=== PATIENT | male | born 1990 | race Hispanic/Latino ===

== ENCOUNTER 2017-05-22 15:22 | Emergency (ER) | payer SELFPAY ==
[2017-05-22] MEDS ORDERED: CEFTRIAXONE SODIUM 1 GM ONE (17:28)
[2017-05-22] MEDS ORDERED: KETOROLAC TROMETHAMINE 60 MG/2 ML VIAL ONE (17:28)
[2017-05-22] MEDS ORDERED: ACETAMINOPHEN-CODEINE 300/30MG TAB ONE (17:28)
[2017-05-22] MEDS ORDERED: LIDOCAINE HCL-MPF 1% 2ML VIAL ONE (17:28)
== END 2017-05-22 18:04 | disposition home or self-care (01) ==
LOC: EDH 15:22
DX: K02.9 Dental caries, unspecified (principal); Z72.0 Tobacco use
CPT/HCPCS: 96372 ×2; 99284; J0696; J1885; J3490